=== PATIENT | male | born 2000 | race Caucasian/White ===

== ENCOUNTER 2025-11-18 00:38 | Emergency (ER) | payer SELFPAY ==
[2025-11-18 00:38] VITALS: BMI 22.4
[2025-11-18 00:47] VITALS: BP 128/81
[2025-11-18 01:37] LABS: Hematocrit 38.9 % (39.0-52.0); Hemoglobin 13.1 g/dL (13.0-18.0); Mean Corp Hgb Conc. 33.7 g/dL (33.0-37.0); Mean Corpuscular Volume 82.2 fL (80.0-94.0); Nucleated Red Blood Cells % 0 % (-); Platelet Count 236 10^3/uL (130-400); Red Cell Dist. Width 12.6 % (11.5-14.5)
[2025-11-18 01:48] LABS: ALT (SGPT) 21 U/L (0-50); AST (SGOT) 24 U/L (17-59); Albumin 4.5 g/dl (3.5-5.0); Alkaline Phosphatase 46 U/L (38-126); Blood Urea Nitrogen 15 mg/dl (9-20); Calcium 9.7 mg/dl (8.4-10.2); Carbon Dioxide 27 mmol/L (22-30); Chloride 103 mmol/L (98-107); Glucose 115 mg/dl (70-99); Potassium 4.2 mmol/L (3.5-5.1); Sodium 138 mmol/L (135-145); Total Protein 7.3 g/dl (6.3-8.2); eGFR > 60.00
[2025-11-18] MEDS: OMNIPAQUE 50 ML PO (02:37)
[2025-11-18] MEDS: MORPHINE SULFATE 4 MG IV (02:38)
[2025-11-18] MEDS: ZOFRAN 4 MG IV (02:39)
[2025-11-18 02:56] VITALS: BP 132/79
[2025-11-18] MEDS: DILAUDID 1 MG IV (03:23)
--- NOTE | 2025-11-18 03:31 | ED.GENMED ---
History of Present Illness
General
Chief Complaint: Abdominal Pain
Source: patient and significant other
Exam Limitations: none
Time Seen by Provider: 11/18/25 02:31
Nursing documentation reviewed up to this point in time: agreed with
History of Present Illness
History of Present Illness:
25-year-old transgender individual male to female no surgery on hormones biologically male identifies as a female less than 1 day lower abdominal pain right greater than left nausea without vomiting moving her bowels normally no prior episodes no
history of kidney stones
Past History
Past History
ED Past Medical History: Other (Transgender)
Social History
Tobacco: Non-smoker
Alcohol: None
Drug: None
Personal: Single
Living: with family
Employment: Employed
Review of Systems
Review of Systems
All Other Systems: Not applicable
Constitutional: Denies fever or fatigue
Respiratory: Reports no symptoms
Cardiac: Reports no symptoms
ABD/GI: Reports abdominal pain, nausea and anorexia; Denies constipated
: Reports no symptoms; Denies dysuria, frequency or incontinence
Musculoskeletal: Reports no symptoms
Phy Exam
Physical Exam
Physical Exam:
Physical Exam
General: 25-year-old transgender individual looks uncomfortable
Neck: No jaundice
Heart: s1/s2 regular rate and rhythm, no murmur. equal radial pulses.
Lungs: no acute respiratory distress. clear bilaterally
Abdomen: Tender in the right greater than left lower abdomen
Neuro: alert and oriented. no focal neurological deficits
Skin: no rash
Psychiatric: well kept. interactive and cooperative
Extremities: no edema.
Course
Orders/Labs/Results
Orders:
Orders
11/18/25 01:15
CMP [Comprehensive Metabolic Panel] Urgent
11/18/25 01:16
Complete Blood Count/With Diff Urgent
11/18/25 02:16
Iohexol [Omnipaque] 50 ml .ROUTE .STK-MED ONE
11/18/25 02:22
Iohexol [Omnipaque] See Protocol PO NOW STA
11/18/25 02:23
CT Abd/pel W Iv And Oral Contr Urgent
Comment:
Reason For Exam: pain
Morphine Sulfate 4 mg IV NOW STA
Ondansetron Injectable [Zofran] 4 mg .ROUTE .STK-MED ONE
Ondansetron Injectable [Zofran] 4 mg IV NOW STA
11/18/25 02:25
Morphine Sulfate 4 mg .ROUTE .STK-MED ONE
11/18/25 03:20
HYDROmorphone [Dilaudid] 1 mg IV NOW STA
11/18/25 03:44
Urinalysis Reflex To Culture Urgent
Date Specimen was Collected: 11/18/25
Time Specimen was Collected: 03:42
11/18/25 06:17
Ketorolac [Toradol] 30 mg IV NOW STA
Abnormal Lab Results
11/18/25 11/18/25
01:15 01:16
WBC 11.7 H 10^3/uL
(4.8-10.8)
Hct 38.9 L %
(39.0-52.0)
Absolute Neuts (auto) 8.8 H 10^3/uL
(1.4-6.5)
Neutrophils % 75.4 H %
(42.2-75.2)
Lymphocytes % 18.6 L %
(20.5-51.1)
Glucose 115 H mg/dl
(70-99)
11/18/25 01:16
11/18/25 01:15
Vital Signs
Initial and Last Documented VS:
Initial Vital Signs
Temp Pulse BP Pulse Ox
97.9 F 85 128/81 96
11/18/25 00:47 11/18/25 00:47 11/18/25 00:47 11/18/25 00:47
Last Documented Vital Signs
Temp Pulse Resp BP Pulse Ox
98.2 F 82 16 132/79 97
11/18/25 02:56 11/18/25 02:56 11/18/25 00:59 11/18/25 02:56 11/18/25 03:33
MDM/Problems Addressed
Differential Diagnosis Includes:
Appendicitis colitis diverticulitis UTI renal stone
MDM/Problems Addressed:
Abdominal pain
*Radiology
Radiology exam reviewed: radiology read reviewed
*Pulse Oximetry
SaO2: 97
Oxygen Mode of Delivery: Room air
Patient hypoxic: no
*Critical Care Note
Total Time (30-74mins, 75-104mins- exclusive of procedures): Not Applicable
Update Note
Update Note:
5:[address] update [address] noted urine noted
6 AM, patient updated
ED Attending Note
-
Portions of this chart may have been created with voice recognition software.� Occasional wrong word or��sound alike� substitutions may have occurred due to the inherent limitations of voice recognition software.
Discharge Plan
Departure
Patient Disposition: Home (Routine Discharge)
Date of Disposition: 11/18/25
Time of Disposition: 06:20
Patient with high blood pressure during this ER visit?: No
Condition: Good
Discharge Problem:
Abdominal pain
Instructions: Abdominal Pain
Prescriptions:
New
ibuprofen 600 mg tablet
600 mg PO Q8H PRN (Reason: Pain) Qty: 14 0RF
dicyclomine 20 mg tablet
20 mg PO QID PRN (Reason: Pain) Qty: 10 0RF
Referrals:
NONE,* [Family Provider, Internal Medicine]
[facility] [Provider Group] - Next open appointment
Interventions
Interventions:
*General Assessment Last Done: 11/18/25 05:42
*Neglect/Abuse Screening Last Done: 11/18/25 05:42
*ED COVID-19 Vaccine History Last Done: 11/18/25 03:00
*ED Influenza Vaccine History Last Done: 11/18/25 03:00
[facility] Fall Risk Assessment Tool Last Done: 11/18/25 00:38
*Risk Screen - Suicide (C-SSRS) Last Done: 11/18/25 00:52
SV-Pbhbkp-Phtygyjoda Assessment Last Done: 11/18/25 03:00
Discharge Date and Time
Print Language: MONTSERRATIAN
[2025-11-18 04:00] LABS: Urine Character Clear (Clear)
[2025-11-18 06:00] VITALS: BP 113/72
[2025-11-18] MEDS: TORADOL 30 MG IV (06:24)
== END 2025-11-18 06:36 | disposition home or self-care (01) ==
LOC: EMR 00:38
PROVIDERS: EMERGENCY PHYSICIAN Emergency Medicine
DX: R10.31 Right lower quadrant pain (principal)
CPT/HCPCS: 99284; 96374; 96375 ×3; 74177; 80053; 81003; 85025; Q9967